=== PATIENT | female | born 1935 | race Caucasian/White ===

== ENCOUNTER → 2023-06-01 09:51 | Outpatient (REF) | payer OTHER, SELFPAY | LOC: WDC 09:51 | PROVIDERS: ATTENDING PHYSICIAN Physician Assistant Medical | DX: N63.20 Unspecified lump in the left breast, unspecified quadrant (principal); N63.22 Unspecified lump in the left breast, upper inner quadrant; N63.11 Unspecified lump in the right breast, upper outer quadrant | CPT/HCPCS: 76642; 77062; 77066 ==

== ENCOUNTER → 2023-06-08 13:13 | Outpatient (REF) | payer OTHER, SELFPAY | LOC: HWRAD 13:13 | PROVIDERS: ATTENDING PHYSICIAN Urology; FAMILY PHYSICIAN Physician Assistant Medical | DX: Z87.440 Personal history of urinary (tract) infections (principal) | CPT/HCPCS: 76775 ==

== ENCOUNTER → 2023-06-12 09:03 | Outpatient (REF) | payer OTHER, SELFPAY ==
--- NOTE | 2023-06-15 08:59 | OID.BR.INTR ---
OID Breast Navigator - Initial
- -
Did not meet patient at time of biopsy. Will follow up per protocol.
== END ==
LOC: WDC 09:03
PROVIDERS: ATTENDING PHYSICIAN Physician Assistant Medical
DX: N63.11 Unspecified lump in the right breast, upper outer quadrant (principal); N63.22 Unspecified lump in the left breast, upper inner quadrant
CPT/HCPCS: 88305; 19083; 77066; 88341; 88342; 88360; A4648

== ENCOUNTER → 2023-07-16 10:13 | Outpatient (REF) | payer OTHER, SELFPAY | LOC: HWRAD 10:13 | PROVIDERS: ATTENDING PHYSICIAN Physician Assistant Medical | DX: I10 Essential (primary) hypertension (principal); Z78.0 Asymptomatic menopausal state | CPT/HCPCS: 77080 ==

== ENCOUNTER → 2023-08-20 13:03 | Outpatient (REF) | payer OTHER, SELFPAY | LOC: HWRAD 13:03 | PROVIDERS: ATTENDING PHYSICIAN Internal Medicine Gastroenterology; FAMILY PHYSICIAN Physician Assistant Medical | DX: R10.30 Lower abdominal pain, unspecified (principal) | CPT/HCPCS: 74022 ==